=== PATIENT | male | born 1985 | race Two or more races ===

== ENCOUNTER 2024-08-17 00:21 | Emergency (ER) | payer MEDICAID, OTHER ==
[~2024-08-17] VITALS: Ht 182.9 cm; Wt 84.0 kg
--- NOTE | 2024-08-17 00:35 | ED.PDOC ---
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 PT A&OX4, VSS, RR EVEN AND UNLABORED ON RA. Patient denies weakness, numbness, loss of bowel bladder control. Chief Complaint: Back Pain Time Seen by MD: 00:29 Reviewed Notes: Nurses Notes, Medications, Allergies Allergies: Coded Allergies: NO KNOWN ALLERGIES (Unverified , 08/17/24) Information Source: Patient Past Medical History PAST MEDICAL HISTORY: Denies Surgical History: Denies all surgeries Family History Family History: Reviewed,noncontributory to illness, No family hx of Cancer, No family hx of DM, No family hx of Heart tierney, No family hx of HTN, No family hx ofKidney tierney, No family hx of Liver tierney, No family hx of Lung tierney, No family hx of Stroke Social History Smoker: Non-Smoker Alcohol: Denies ETOH Use Drugs: Denies Drug Use Constitutional: denies: chills, diaphoresis, fatigue, fever, malaise, sweats, weakness, others EENTM: denies: blurred vision, double vision, ear bleeding, ear discharge, ear drainage, ear pain, ear ringing, eye pain, eye redness, hearing loss, mouth pain, mouth swelling, nasal discharge, nose bleeding, nose congestion, nose pain, photophobia, tearing, throat pain, throat swelling, voice changes, others Respiratory: denies: cough, hemoptysis, orthopnea, SOB at rest, shortness of breath, SOB with excertion, stridor, wheezing, others Cardiovascular: denies: chest pain, dizzy spells, diaphoresis, Dyspnea on exertion, edema, irregular heart beat, left arm pain, lightheadedness, palpitations, PND, syncope, others Gastrointestinal: denies: abdomen distended, abdominal pain, blood streaked bowels, constipated, diarrhea, dysphagia, difficulty swallowing, hematemesis, melena, nausea, poor appetite, poor fluid intake, rectal bleeding, rectal pain, vomiting, others Genitourinary: denies: burning, dysuria, flank pain, frequency, hematuria, incontinence, penile discharge, penile sore, pain, testicle pain, testicle swelling, urgency, others Neurological: denies: dizziness, fainting, headache, left sided numbness, left sided weakness, numbness, paresthesia, pre-existing deficit, right sided numbness, right sided weakness, seizure, speech problems, tingling, tremors, weakness, others Musculoskeletal: reports: back pain; denies: gout, joint pain, joint swelling, muscle pain, muscle stiffness, neck pain, others Integumetry: denies: bruises, change in color, change in hair/nails, dryness, laceration, lesions, lumps, rash, wounds, others Allergic/Immunocompromised: denies: Difficulty Healing, Frequent Infections, Hives, Itching, others Hematologic/Lymphatic: denies: anemia, blood clots, easy bleeding, easy bruising, swollen glands, others Endocrine: denies: excessive hunger, excessive sweating, excessive thirst, excessive urination, flushing, intolerance to cold, intolerance to heat, unexplained weight gain, unexplained weight loss, others Psychiatric: denies: anxiety, bipolar disorder, depression, hopeless, panic disorder, schizophrenia, sleepless, suicidal, others Physical Exam General Appearance: No Apparent Distress, Normal HEENT: Pharynx Normal Neck: Full Range of Motion, Non-Tender Respiratory: Lungs Clear, No Respiratory Distress, Normal Breath Sounds Cardiovascular: No Murmur, Normal Peripheral Pulses, Regular Rate/Rhythm Breast Exam: Deferred Gastrointestinal: Non Tender, Soft Genitalia: Deferred Pelvic: Deferred Rectal: Deferred Extremities: Normal capillary refill, Normal inspection, Normal range of motion, Non-tender, No pedal edema Musculoskeletal : Location: Bilateral Extremity Location: Back (Per patient lower back bilateral musculature an older crepitus or step-offs strength since her motion intact negative straight leg raise.) Apperance: Normal 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 Was a procedure done?: No Back Pain Differential Dx Differential Diagnosis: Aortic Dissection, Appendicitis, Bowel Obstruction, Cholelithiasis, Fracture, Musculoskeletal Pain, Urinary Tract Infection X-Ray, Labs, Meds, VS Vital Signs Date Time Temp Pulse Resp B/P (MAP) Pulse Ox O2 Delivery O2 Flow Rate FiO2 08/17/24 01:12 95 17 97 Room Air 08/17/24 01:12 98.8 95 17 128/93 (105) 97 98.8 08/17/24 00:35 98.8 94 18 122/84 (97) 96 98.8 Current Medications Medications (Trade) Dose Ordered Sig/Galina Route Start Time Stop Time Status Last Admin Ibuprofen (Motrin Tablet) 800 mg ONCE ONCE PO 08/17/24 01:30 08/17/24 01:31 08/17/24 01:25 X-Ray, Labs, Meds, VS Comment States pain has improved since being here, he is requesting a work note for this a.m. and to be discharged, patient given 800 mg ibuprofen prior to discharge. Advised to call his primary care provider follow up in 2 days ER return precautions given patient in case he understand agrees with discharge plan of care. Time of 1ST Reevaluation: 00:34 Reevaluation 1ST: Unchanged Time of 2ND Reevaluation: 01:21 Reevaluation 2ND: Improved Patient Education/Counseling: Diagnosis, Treatment, Prognosis, Need For Follow Up Family Education/Counseling: No Family Present Departure 1 Departure Time of Disposition: 01:31 Impression: Primary Impression: Lumbar sprain Qualified Codes: S33.5XXA - Sprain of ligaments of lumbar spine, initial encounter Additional Impression: Musculoskeletal pain Disposition: 01 HOME / SELF CARE / HOMELESS Condition: Stable Discharged With: Self Critical Care Note Critical Care Time?: No Stability Stability form required: MICHAEL Roa August 17, 2024 00:35
[2024-08-17 01:12] VITALS: BP 128/93; PULSE 95; RESP 17; TEMP 98.8; O2SAT 97
[2024-08-17] MEDS: IBUPROFEN 800 MG TAB PO ONE (01:25)
== END 2024-08-17 01:40 | disposition home or self-care (01) ==
LOC: ER 00:21
DX: S33.5XXA Sprain of ligaments of lumbar spine, initial encounter (principal); M79.18 Myalgia, other site; X58.XXXA Exposure to other specified factors, initial encounter; Y93.89 Activity, other specified; Y92.89 Other specified places as the place of occurrence of the external cause; Y99.8 Other external cause status